=== PATIENT | female | born 1965 | race Caucasian/White ===

== ENCOUNTER 2020-03-06 12:54 | Observation (INO) ==
[2020-03-06] MEDS ORDERED: 0.9 % Sodium Chloride 1,000 ML IVC ONE (13:00)
[2020-03-06] MEDS ORDERED: Isovue-370 500 ML BOTTLE IVP ONE (13:13)
[2020-03-06 13:45] LABS: Basophils % 0.4 %; Eosinophils # 0.2 K/mcL (0.0-0.6); Eosinophils % 1.6 %; Hematocrit 46.4 % (35.3-44.9); Hemoglobin 15.4 g/dL (11.5-15.4); Immature Granulocytes % 0.5 % (0-4); Lymphocytes # 0.7 K/mcL (0.6-4.6); Lymphocytes % 7.5 %; Mean Corpuscular HGB Conc 33.2 g/dL (31.6-35.5); Mean Corpuscular Volume 105.5 fL (83.0-100.0); Mean Platelet Volume 8.7 fL (9.4-12.4); Monocytes # 0.5 K/mcL (0.0-1.3); Monocytes % 5.6 %; Platelet Count 248 K/mcL (140-400); Red Cell Distribution Width 14.1 % (11.5-14.5); Segmented Neutrophils % 84.4 %; White Blood Count 9.5 K/mcL (4.3-11.1)
[2020-03-06 13:55] LABS: INR 0.9; Prothrombin Time 10.1 Seconds (9.4-12.1)
[2020-03-06 13:57] LABS: Activated Partial Thrombo Time 30.4 Seconds (26.0-36.0)
[2020-03-06] MEDS ORDERED: Ketorolac 15 MG/ML VIAL IVP ONE (13:57)
[2020-03-06 14:01] LABS: Bilirubin,Urine Negative (Negative); Blood,Urine Negative (Negative); Clarity,Urine Clear (Clear); Color,Urine Colorless (Yellow); Glucose,Urine (UA) Normal (Normal); Ketones,Urine Negative (Negative); Leukocyte Esterase,Urine Negative (Negative); Nitrite,Urine Negative (Negative); PH,Urine 6.5 pH Units (5.0-8.0); Protein,Urine Negative (Neg-Trace); Specific Gravity,Urine 1.007 (1.010-1.025); Urobilinogen,Urine Normal (Normal)
[2020-03-06 14:02] LABS: Alanine Aminotransferase 40 Units/L (7-52); Albumin 4.3 g/dL (3.5-5.7); Albumin/Globulin Ratio 1.7 (1.1-2.2); Alkaline Phosphatase 107 Units/L (34-104); Aspartate Amino Transferase 28 Units/L (13-39); BUN/Creatinine Ratio 32 (6-26); Bilirubin,Total 0.4 mg/dL (0.3-1.0); Blood Urea Nitrogen 15 mg/dL (6-20); Calcium 9.1 mg/dL (8.6-10.3); Carbon Dioxide 25 mEq/L (23-29); Chloride 102 mEq/L (98-107); Ethanol 177 mg/dL (Less than 10); Globulin 2.6 g/dL (2.4-3.5); Glucose 109 mg/dL (70-105); Osmolality,Calculated 283 (280-300); Potassium 4.4 mEq/L (3.5-5.1); Sodium 136 mEq/L (136-145); Total Protein 6.9 g/dL (6.4-8.9); eGFR For African Americans > 60 (> 60); eGFR For Non-African Americans > 60 (> 60)
[2020-03-06] MEDS ORDERED: *HR* LORazepam 2 MG/ML VIAL IVP ONE (14:41)
[2020-03-06] MEDS: *HR* LORazepam 2 MG/ML VIAL ONE ×2 (14:42→14:49)
[2020-03-06 14:51] LABS: Troponin I < 0.03 ng/mL (< 0.04)
[2020-03-06] MEDS ORDERED: Naloxone 0.4 MG/ML INJ IVP PRN (16:43)
[2020-03-06] MEDS ORDERED: Furosemide 40 MG/4 ML VIAL IVP ONE (16:45)
[2020-03-06] MEDS ORDERED: Perflutren Lipid Microsphere 1.3 ML in 0.9 % Sodium Chloride 8.7 ML IVP PRN (17:02)
[2020-03-06] MEDS ORDERED: *HR* LORazepam 2 MG/ML VIAL IVP PRN ×3 (17:06)
[2020-03-06] MEDS ORDERED: traZODone 50 MG TABLET PO PRN (17:07)
[2020-03-06] MEDS: Acetaminophen IV 1,000 MG/100 ML BAG IVPB SCH ×3 (18:15→23:26)
[2020-03-06] MEDS ORDERED: Ketorolac 15 MG/ML VIAL IVP PRN (20:28)
[2020-03-06] MEDS ORDERED: methocarbamoL 500 MG TABLET PO ONE (20:28)
[2020-03-06] MEDS: atenoloL 25 MG TABLET PO SCH (20:28)
[2020-03-06] MEDS ORDERED: Acetaminophen 325 MG TABLET PO PRN (20:29)
[2020-03-07 03:00] LABS: BUN/Creatinine Ratio 27 (6-26); Blood Urea Nitrogen 16 mg/dL (6-20); Calcium 9.2 mg/dL (8.6-10.3); Carbon Dioxide 25 mEq/L (23-29); Chloride 104 mEq/L (98-107); Chol/HDL Ratio 4.3 (0-4.9); Cholesterol 213 mg/dL (< 200); Glucose 80 mg/dL (70-105); HDL Cholesterol 49 mg/dL (40-59); LDL Cholesterol,Calculated 128 mg/dL (< 100); Magnesium 2.1 mg/dL (1.6-2.6); Osmolality,Calculated 288 (280-300); Phosphorous 4.1 mg/dL (2.7-4.5); Potassium 4.5 mEq/L (3.5-5.1); Sodium 139 mEq/L (136-145); Triglycerides 180 mg/dL (< 150); eGFR For African Americans > 60 (> 60); eGFR For Non-African Americans > 60 (> 60)
[2020-03-07 03:24] LABS: Folate 11.6 ng/mL (3.0-16.0)
[2020-03-07] MEDS: Acetaminophen IV 1,000 MG/100 ML BAG IVPB SCH ×2 (05:37→13:28)
[2020-03-07 08:50] LABS: Estimated Average Glucose 126 mg/dl
[2020-03-07] MEDS: atenoloL 25 MG TABLET PO SCH ×2 (10:00→20:20)
[2020-03-07] MEDS ORDERED: Furosemide 40 MG/4 ML VIAL IVP ONE (11:32)
[2020-03-07] MEDS: *HR* Heparin 5,000 UNIT/ML VIAL SQ SCH ×2 (13:21→20:22)
[2020-03-07] MEDS: Cyanocobalamin (B-12) 1,000 MCG TABLET PO SCH (15:00)
[2020-03-07] MEDS: lisinopriL 5 MG TABLET PO SCH (15:00)
[2020-03-08] MEDS: *HR* Heparin 5,000 UNIT/ML VIAL SQ SCH (05:23)
[2020-03-08 07:09] VITALS: BP 137/74
[2020-03-08] MEDS: Cyanocobalamin (B-12) 1,000 MCG TABLET PO SCH (08:58)
[2020-03-08] MEDS: atenoloL 25 MG TABLET PO SCH (08:58)
[2020-03-08] MEDS: lisinopriL 5 MG TABLET PO SCH (08:58)
== END 2020-03-08 16:30 | disposition home health service (06) ==
LOC: 3ANU 12:54 → EMEROOARM 12:54 → SUATTDRO 16:34 → 3ANU 17:15
PROVIDERS: ADMIT Internal Medicine; ATTEND Internal Medicine

== ENCOUNTER 2020-09-15 19:24 | Observation (INO) ==
[2020-09-15 19:56] LABS: Basophils # 0.1 K/mcL (0.0-0.2); Basophils % 0.5 %; Eosinophils # 0.3 K/mcL (0.0-0.6); Eosinophils % 2.6 %; Hematocrit 51.6 % (35.3-44.9); Hemoglobin 17.3 g/dL (11.5-15.4); Immature Granulocytes % 0.3 % (0-4); Lymphocytes # 1.1 K/mcL (0.6-4.6); Lymphocytes % 10.7 %; Mean Corpuscular HGB Conc 33.5 g/dL (31.6-35.5); Mean Corpuscular Hemoglobin 34.8 pg (28.0-33.3); Mean Corpuscular Volume 103.8 fL (83.0-100.0); Monocytes # 0.5 K/mcL (0.0-1.3); Monocytes % 4.8 %; Platelet Count 246 K/mcL (140-400); Red Blood Count 4.97 M/mcL (3.82-4.97); Red Cell Distribution Width 13.5 % (11.5-14.5); Segmented Neutrophils % 81.1 %; White Blood Count 9.9 K/mcL (4.3-11.1)
[2020-09-15 20:03] LABS: Prothrombin Time 11.2 Seconds (9.4-12.1)
[2020-09-15 20:05] LABS: Activated Partial Thrombo Time 28.9 Seconds (26.0-36.0)
[2020-09-15 20:50] LABS: Influenza A PCR Negative (Negative); Influenza B PCR Negative (Negative); Resp. Syncytial Virus PCR Negative (Negative)
[2020-09-15] MEDS ORDERED: Isovue-370 500 ML BOTTLE IVP ONE (20:50)
[2020-09-15] MEDS ORDERED: 0.9 % Sodium Chloride 1,000 ML IVC ONE (20:51)
[2020-09-15] MEDS ORDERED: *HR* HYDROmorphone (PF) 1 MG/ML SYRINGE IVP ONE (20:51)
[2020-09-15 20:52] LABS: SARS-CoV-2 by PCR (In House) Negative (Negative)
[2020-09-15 21:29] LABS: Alanine Aminotransferase 26 Units/L (7-52); Albumin/Globulin Ratio 1.5 (1.1-2.2); Alkaline Phosphatase 148 Units/L (34-104); Aspartate Amino Transferase 29 Units/L (13-39); BUN/Creatinine Ratio 26 (6-26); Bilirubin,Direct 0.2 mg/dL (0.0-0.2); Bilirubin,Indirect 0.3 mg/dL (0.0-1.0); Bilirubin,Total 0.5 mg/dL (0.3-1.0); Blood Urea Nitrogen 16 mg/dL (6-20); Calcium 9.3 mg/dL (8.6-10.3); Carbon Dioxide 27 mEq/L (23-29); Chloride 103 mEq/L (98-107); Globulin 2.6 g/dL (2.4-3.5); Glucose 118 mg/dL (70-105); Lipase 63 Units/L (11-82); Osmolality,Calculated 288 (280-300); Potassium 4.8 mEq/L (3.5-5.1); Sodium 138 mEq/L (136-145); Total Protein 6.6 g/dL (6.4-8.9); Troponin I < 0.03 ng/mL (< 0.04); eGFR For African Americans > 60 (> 60); eGFR For Non-African Americans > 60 (> 60)
[2020-09-15] MEDS ORDERED: diazePAM 10 MG/2 ML SYRINGE IVP STA (22:13)
[2020-09-15] MEDS ORDERED: Ketorolac 15 MG/ML VIAL IVP ONE (23:10)
[2020-09-15] MEDS ORDERED: *HR* FentaNYL (PF) 100 MCG/2 ML VIAL IVP ONE (23:10)
[2020-09-15 23:45] LABS: Bacteria,Urine Few per hpf (None-Few); Bilirubin,Urine Negative (Negative); Blood,Urine Negative (Negative); Clarity,Urine Turbid (Clear); Color,Urine Yellow (Yellow); Glucose,Urine (UA) Normal (Normal); Hyaline Casts,Urine Many per lpf (None Seen); Ketones,Urine Negative (Negative); Leukocyte Esterase,Urine Trace (Negative); Mucus,Urine Few per lpf (None-Few); Nitrite,Urine Negative (Negative); Protein,Urine 70 mg/dL (Neg-Trace); RBC,Urine 0-3 per hpf (0-3); Specific Gravity,Urine > 1.030 (1.010-1.025); Squamous Epithelial Cell,Urine Moderate per hpf (None-Few)
[2020-09-16] MEDS ORDERED: *HR* HYDROmorphone (PF) 1 MG/ML SYRINGE IVP ONE ×2 (01:29→02:30)
[2020-09-16] MEDS ORDERED: Naloxone 0.4 MG/ML INJ IVP PRN (05:07)
[2020-09-16] MEDS ORDERED: Ondansetron 4 MG/2 ML VIAL IVP PRN (05:07)
[2020-09-16] MEDS ORDERED: *HR* HYDROmorphone (PF) 1 MG/ML SYRINGE IVP PRN (05:09)
[2020-09-16] MEDS ORDERED: Ketorolac 30 MG/ML VIAL IVP PRN (05:10)
[2020-09-16] MEDS ORDERED: GuaiFENesin/Dextromethorphan TABLET PO PRN (07:03)
[2020-09-16] MEDS ORDERED: Benzonatate 100 MG CAPSULE PO PRN (07:03)
[2020-09-16] MEDS ORDERED: Ondansetron ODT 4 MG TAB.RAPDIS SL ONE (09:57)
[2020-09-16] MEDS ORDERED: *HR* OxyCODONE/APAP 10/325 TABLET PO PRN (10:01)
[2020-09-16 10:08] VITALS: BP 191/107
[2020-09-16] MEDS ORDERED: atenoloL 25 MG TABLET PO SCH (11:15)
[2020-09-16] MEDS ORDERED: *HR* Heparin 5,000 UNIT/ML VIAL SQ SCH (18:00)
[2020-09-16] MEDS ORDERED: carvediloL 6.25 MG TABLET PO SCH (21:00)
[2020-09-17] MEDS ORDERED: Furosemide 20 MG TABLET PO SCH (09:00)
[2020-09-17] MEDS ORDERED: lisinopriL 5 MG TABLET PO SCH (18:00)
[2020-09-21] MEDS ORDERED: Ibuprofen 600 MG TABLET PO PRN (12:00)
== END 2020-09-16 13:56 | disposition home or self-care (01) ==
LOC: 3NENU 19:24 → EMEROOARM 19:24 → 3NENU 09-16 04:00
PROVIDERS: ADMIT Family Medicine; ATTEND Family Medicine